=== PATIENT | female | born 1960 | race Two or more races ===

== ENCOUNTER 2025-02-20 17:20 | Emergency (ER) | payer OTHER ==
[~2025-02-20] VITALS: Ht 160 cm; Wt 53.5 kg
[2025-02-20] MEDS ORDERED: SYNTHROID75 MCG PO (18:47)
[2025-02-20] MEDS ORDERED: CRESTOR40 MG PO (18:47)
[2025-02-20] MEDS ORDERED: FOSAMAX PLUS D1 EACH PO (18:47)
[2025-02-20] MEDS ORDERED: KETOROLAC TROMETHAMINE 30 MG VIAL IM ONE (20:30)
[2025-02-20] MEDS ORDERED: KETOROLAC TROMETHAMINE 30 MG VIAL ONE (20:55)
[2025-02-20] MEDS ORDERED: TYLENOL ARTHRI650 MG PO (21:56)
== END 2025-02-20 22:15 | disposition home or self-care (01) ==
LOC: ER 17:20
DX: S52.592A Other fractures of lower end of left radius, initial encounter for closed fracture (principal); S52.292A Other fracture of shaft of left ulna, initial encounter for closed fracture; W19.XXXA Unspecified fall, initial encounter; Y93.89 Activity, other specified; Y92.89 Other specified places as the place of occurrence of the external cause
CPT/HCPCS: 29125; 73070; 73090; 73110; 73502; 73521; 96372; 99283; J1885

== ENCOUNTER 2025-02-23 07:16 | Outpatient (CLI) | payer OTHER ==
[~2025-02-23 07:16] MED LIST: CRESTOR40 MG PO; FOSAMAX PLUS D1 EACH PO; SYNTHROID75 MCG PO; TYLENOL ARTHRI650 MG PO
[2025-02-23 07:54] LABS: BASO % 0.7 % (0.1-1.2); EOS # 0.13 (0.04-0.54); EOS % 2.9 % (0.7-7.0); HEMATOCRIT 35.3 % (34.1-44.9); HEMOGLOBIN 11.7 g/dL (11.2-15.7); LYMPH # 1.31 (1.18-3.74); LYMPH % 29.2 % (19.3-53.1); MONO # 0.38 (0.24-0.82); MONO % 8.5 % (4.7-12.5); NEUT # 2.63 (1.56-6.13); NEUT % 58.5 % (34.0-71.1); PLATELET COUNT 226 K/uL (163-369); RED BLOOD COUNT 4.03 M/uL (3.93-5.22); RED CELL DISTRIBUTION WIDTH 13.3 % (11.6-14.4)
[2025-02-23 08:28] LABS: PARTIAL THROMBOPLASTIN TIME 25.2 SECONDS (22.0-34.0); PROTHROMBIN TIME 10.9 SECONDS (9.0-11.5)
[2025-02-23 08:32] LABS: ALBUMIN 3.5 gm/dL (3.4-5.0); BILIRUBIN TOTAL 0.27 mg/dL (0.3-1.2); CALCIUM 9.4 mg/dL (8.5-10.1); CREATININE SERUM 0.83 mg/dL (0.55-1.02); GFR 69.21; GLOBULINA 3.4 G/DL (2.4-3.5); POTASSIUM 4.89 mEq/L (3.5-5.1); TOTAL PROTEIN 6.9 gm/dL (6.4-8.2)
[2025-02-23 08:37] LABS: PH,URINE 5.5 (5.0-8.0); URINE APPEARANCE Clear; URINE BACTERIA 7.3 uL (0.0-1933); URINE BILIRRUBIN Negative (NEGATIVE); URINE BLOOD Negative; URINE COLOR Yellow; URINE GLUCOSE Negative (NEGATIVE); URINE KETONE Negative (NEGATIVE); URINE LEUKOCYTE Negative; URINE NITRATE Negative; URINE PROTEIN Negative (NEGATIVE); URINE UROBILINOGEN 0.2 E.U./dl; URINE WBC 2.9 uL (0.0-23.2)
[2025-02-23 08:40] LABS: URINE CAST 0.29 uL (0.0-1.40); URINE RBC 1.7 uL (0.0-20.8)
[2025-02-23 09:16] LABS: COL EPI 105 SECONDS (82-175)
[2025-02-24] MEDS ORDERED: FOSAMAX70 MG PO (09:06)
== END 2025-02-23 07:29 | disposition home or self-care (01) ==
LOC: LAB 07:16
PROVIDERS: ATTEND Orthopaedic Surgery
DX: D64.9 Anemia, unspecified (principal); Z76.89 Persons encountering health services in other specified circumstances; E88.9 Metabolic disorder, unspecified; D68.8 Other specified coagulation defects; N39.0 Urinary tract infection, site not specified; Z22.322 Carrier or suspected carrier of Methicillin resistant Staphylococcus aureus; I10 Essential (primary) hypertension

== ENCOUNTER 2025-02-28 05:23 | Day surgery (SDC) | payer OTHER ==
[~2025-02-28 05:23] MED LIST changes: +FOSAMAX70 MG PO
[2025-02-28] MEDS ORDERED: BUPIVACAINE HCL/MPF 0.5% 30ML VIAL ONE (06:45)
[2025-02-28] MEDS ORDERED: CEFAZOLIN SODIUM 1,000 MG VIAL ONE ×2 (07:03→07:18)
[2025-02-28] MEDS ORDERED: MORPHINE SULFATE 4 MG/ML VIAL IV ONE ×2 (09:50→10:20)
== END 2025-02-28 11:45 | disposition home or self-care (01) ==
LOC: CIR.AMB 05:23
PROVIDERS: ATTEND Orthopaedic Surgery
DX: S52.572A Other intraarticular fracture of lower end of left radius, initial encounter for closed fracture (principal); M24.532 Contracture, left wrist
CPT/HCPCS: 25609; 20902; 25280; L8699

== ENCOUNTER 2025-03-30 07:07 | Outpatient (CLI) | payer OTHER | END 2025-03-30 07:12 | disposition home or self-care (01) | LOC: RAD 07:07 | PROVIDERS: ATTEND Orthopaedic Surgery | DX: S52.572D Other intraarticular fracture of lower end of left radius, subsequent encounter for closed fracture with routine healing (principal); X58.XXXD Exposure to other specified factors, subsequent encounter ==

== ENCOUNTER 2025-06-22 07:47 | Outpatient (CLI) | payer OTHER | END 2025-06-22 07:54 | disposition home or self-care (01) | LOC: RAD 07:47 | PROVIDERS: ATTEND Orthopaedic Surgery | DX: S52.572D Other intraarticular fracture of lower end of left radius, subsequent encounter for closed fracture with routine healing (principal) ==

== ENCOUNTER 2025-07-10 08:31 | Outpatient (CLI) | payer OTHER ==
[2025-07-10 11:00] LABS: ALT/SGPT 19.0 U/L (12-78); AST/SGOT 14.0 U/L (15-37); BILIRUBIN TOTAL 0.53 mg/dL (0.3-1.2); BUN CREA RATIO 30.0 (7.0-25.0); CREATININE SERUM 0.56 mg/dL (0.55-1.02); GFR 108.64; GLOBULINA 3.0 G/DL (2.4-3.5); GLUCOSE FASTING 86.0 mg/dL (65-100); OSMOLALITY SERUM 288.0 MOSM/KG (275-295); TSH 0.761 uIU/mL (0.358-3.74)
[2025-07-11 13:11] LABS: CALCIUM IONIZED 5.3 mg/dL (4.5-5.6)
== END 2025-07-10 08:40 | disposition home or self-care (01) ==
LOC: LAB 08:31
PROVIDERS: ATTEND Orthopaedic Surgery
DX: E55.9 Vitamin D deficiency, unspecified (principal); M85.9 Disorder of bone density and structure, unspecified; E56.1 Deficiency of vitamin K; E21.3 Hyperparathyroidism, unspecified; E88.89 Other specified metabolic disorders; M81.8 Other osteoporosis without current pathological fracture; E03.9 Hypothyroidism, unspecified

== ENCOUNTER → 2025-08-04 07:18 | Outpatient (CLI) | payer OTHER ==
[2025-08-04 07:48] LABS: BASO % 0.6 % (0.1-1.2); EOS # 0.14 (0.04-0.54); EOS % 2.8 % (0.7-7.0); LYMPH # 1.58 (1.18-3.74); LYMPH % 31.2 % (19.3-53.1); MEAN PLATELET VOLUME 10.80 fl (9.4-12.4); MONO # 0.44 (0.24-0.82); MONO % 8.7 % (4.7-12.5); NEUT # 2.86 (1.56-6.13); NEUT % 56.5 % (34.0-71.1); RED CELL DISTRIBUTION WIDTH 13.1 % (11.6-14.4)
[2025-08-04 08:05] LABS: INR 0.99
[2025-08-04 08:13] LABS: COL EPI 102 SECONDS (82-175)
[2025-08-04 08:15] LABS: ALT/SGPT 21.0 U/L (12-78); AST/SGOT 17.0 U/L (15-37); BILIRUBIN TOTAL 0.33 mg/dL (0.3-1.2); BUN CREA RATIO 25.0 (7.0-25.0); CREATININE SERUM 0.77 mg/dL (0.55-1.02); GFR 75.23; GLOBULINA 3.1 G/DL (2.4-3.5); GLUCOSE FASTING 92.0 mg/dL (65-100); OSMOLALITY SERUM 289.0 MOSM/KG (275-295)
[2025-08-04 08:23] LABS: URINE APPEARANCE Clear; URINE BILIRRUBIN Negative (NEGATIVE); URINE BLOOD Negative; URINE COLOR Yellow; URINE GLUCOSE Negative (NEGATIVE); URINE KETONE Negative (NEGATIVE); URINE LEUKOCYTE Negative; URINE NITRATE Negative; URINE PROTEIN Negative (NEGATIVE); URINE UROBILINOGEN 0.2 E.U./dl
[2025-08-04 08:27] LABS: URINE BACTERIA 11.9 uL (0.0-1933); URINE EPITHELIAL CELLS 1.6 uL (0.0-38.8); URINE RBC 2.1 uL (0.0-20.8); URINE WBC 2.7 uL (0.0-23.2)
[2025-08-04 09:19] LABS: URINE CAST 0.00 uL (0.0-1.40)
== END | disposition home or self-care (01) ==
LOC: RAD 07:18
PROVIDERS: ATTEND Orthopaedic Surgery
DX: D64.9 Anemia, unspecified (principal); E88.9 Metabolic disorder, unspecified; D68.8 Other specified coagulation defects; N39.0 Urinary tract infection, site not specified; E11.9 Type 2 diabetes mellitus without complications; Z22.322 Carrier or suspected carrier of Methicillin resistant Staphylococcus aureus; Z76.89 Persons encountering health services in other specified circumstances